=== PATIENT | male | born 1985 | race Caucasian/White ===

== ENCOUNTER 2017-07-30 17:48 | Inpatient (IN) | payer MEDICAID ==
[2017-07-30] MEDS: SOD CHLORIDE 0.9% 1,000 ML IV ×5 (19:09→21:56)
[2017-07-30 19:50] LABS: ADD MAN DIFF? NO
[2017-07-30 19:55] LABS: WHITE BLOOD COUNT 9.3 10^3/ul (4.8-10.8)
[2017-07-30 19:55] LABS: BASOPHIL # 0.1 10^3/ul (0.0-0.1); EOSINOPHILS % 0.1 % (0.0-7.0); HEMATOCRIT 46.3 % (42.0-52.0); LYMPHOCYTES # 1.7 10^3/ul (0.8-2.9); LYMPHOCYTES % 18.5 % (15.0-51.0); MEAN CORPUSCULAR HEMOGLOBIN 30.7 pg (29.0-33.0); MEAN CORPUSCULAR HGB CONC 34.6 g/dl (32.0-37.0); MEAN CORPUSCULAR VOLUME 88.7 fl (82.0-101.0); MEAN PLATELET VOLUME 9.4 fl (7.4-10.4); MONOCYTE # 1.1 10^3/ul (0.3-0.9); MONOCYTES % 11.4 % (0.0-11.0); NEUTROPHILS % 64.1 % (39.0-77.0); PLATELET COUNT 476 10^3/UL (140-415); RED BLOOD COUNT 5.22 10^6/ul (4.70-6.10)
[2017-07-30 20:13] LABS: LACTIC ACID 1.3 mmol/L (0.5-2.0)
[2017-07-30 20:14] LABS: ANION GAP 31 (8-16); BLOOD UREA NITROGEN 6 mg/dl (7-20); CALCIUM 9.9 mg/dl (8.4-10.2); CHLORIDE 108 mmol/L (97-110); POTASSIUM 4.2 mmol/L (3.5-5.1); SODIUM 142 mmol/L (135-144)
[2017-07-30] MEDS: ONDANSETRON 4 MG INJ IV (20:16)
[2017-07-30 20:18] LABS: CARBON DIOXIDE 7 mmol/L (21-31); GLUCOSE 481 mg/dl (70-220)
[2017-07-30 20:56] LABS: ADD UMIC YES; UR ASCORBIC ACID NEGATIVE (NEGATIVE); UR BILIRUBIN (Dip) NEGATIVE (NEGATIVE); UR BLOOD (Dip) 1+ mg/dL (NEGATIVE); UR CLARITY CLEAR (CLEAR); UR COLOR STRAW (YELLOW); UR GLUCOSE (Dip) 3+ mg/dL (NEGATIVE); UR KETONES (Dip) 2+ mg/dL (NEGATIVE); UR LEUKOCYTE ESTERASE (Dip) NEGATIVE Leu/ul (NEGATIVE); UR NITRITE (Dip) NEGATIVE (NEGATIVE); UR RBC 1 /HPF (0-5); UR SPECIFIC GRAVITY (Dip) 1.024 (1.003-1.030); UR TOTAL PROTEIN (Dip) 1+ mg/dl (NEGATIVE); UR UROBILINOGEN (Dip) NEGATIVE (NEGATIVE); UR WBC 0 /HPF (0-5)
[2017-07-30 21:01] LABS: MODE ROOM AIR; MetHgb Venous 0.2 %; Sample Type Blood venous; Site VENOUS LINE; Venous COHb 0.2 %; Venous Oxygen Sat 51.2 mmHG (55.0-75.0); Venous Total Hemglobin 14.9 g/dl
[2017-07-30] MEDS ORDERED: morphine 2 MG INJ IV (22:00)
[2017-07-30] MEDS ORDERED: INSULIN HUMAN REGULAR 100 UNIT in SOD CHLORIDE 0.9% 99 ML IV (22:00)
[2017-07-30] MEDS ORDERED: DEXTROSE 50% 50 ML SYRINGE IV ×2 (22:00)
[2017-07-30] MEDS ORDERED: ACETAMINOPHEN 650MG/20.3ML CUP PO (22:00)
[2017-07-30] MEDS ORDERED: ALBUTEROL/IPRATROPIUM (NEB) 3 ML AMP NEB (22:00)
[2017-07-30] MEDS ORDERED: ONDANSETRON 4 MG INJ IV (22:00)
[2017-07-30] MEDS: CEFTRIAXONE 1 GM/50 ML (PMX) 50 ML IVPB (22:20)
[2017-07-30] MEDS: ACCU-CHEK XX ×2 (22:44→23:00)
[2017-07-30] MEDS: INSULIN HUMAN REGULAR 100 UNIT in SOD CHLORIDE 0.9% 99 ML IV (22:44)
[2017-07-30 22:48] LABS: BLOOD UREA NITROGEN 5 mg/dl (7-20); CALCIUM 8.3 mg/dl (8.4-10.2); CHLORIDE 114 mmol/L (97-110); CREATININE 0.63 mg/dl (0.61-1.24); GLUCOSE 346 mg/dl (70-220); SODIUM 143 mmol/L (135-144)
[2017-07-30 22:48] LABS: PHOSPHORUS 1.7 mg/dl (2.5-4.9)
[2017-07-30 22:50] LABS: ANION GAP 28 (8-16); POTASSIUM 4.5 mmol/L (3.5-5.1)
[2017-07-30 22:56] LABS: CARBON DIOXIDE 6 mmol/L (21-31)
[2017-07-30] MEDS: LACTATED RINGER'S 1,000 ML IV (23:41)
[2017-07-30] MEDS ORDERED: NS + KCL 20 MEQ 1,000 ML IV (23:56)
[2017-07-31] MEDS: ACCU-CHEK XX ×17 (00:49→21:00)
[2017-07-31 01:14] LABS: ANION GAP 24 (8-16); BLOOD UREA NITROGEN 4 mg/dl (7-20); CALCIUM 8.4 mg/dl (8.4-10.2); CHLORIDE 117 mmol/L (97-110); CREATININE 0.58 mg/dl (0.61-1.24); GLUCOSE 274 mg/dl (70-220); POTASSIUM 3.6 mmol/L (3.5-5.1); SODIUM 143 mmol/L (135-144)
[2017-07-31 01:26] LABS: CARBON DIOXIDE 6 mmol/L (21-31)
[2017-07-31] MEDS: D5W-0.45 NACL + KCL 20 MEQ 1,000 ML IV ×2 (01:36→09:55)
[2017-07-31 02:23] LABS: ANION GAP 18 (8-16); BLOOD UREA NITROGEN 4 mg/dl (7-20); CALCIUM 8.3 mg/dl (8.4-10.2); CARBON DIOXIDE 12 mmol/L (21-31); CHLORIDE 121 mmol/L (97-110); GLUCOSE 210 mg/dl (70-220); POTASSIUM 4.1 mmol/L (3.5-5.1); SODIUM 147 mmol/L (135-144)
[2017-07-31 05:00] LABS: AADO2 Arterial 16.4 mmHg (7.0-24.0); Allen Test ACCEPTAB; Arterial Base Excess -10.6 mmol/L (-3.0-3); Arterial Blood Gas Oxygen Sat 97.5 mmHG (95.0-98.0); Arterial COHb 0.3 % (0.0-3.0); Arterial Fraction of Oxyhgb 96.9 % (93.0-99.0); Arterial HCO3 14.7 mmol/L (22.0-26.0); Arterial MetHb 0.3 % (0.0-1.5); Arterial Total Hemglobin 13.5 g/dl (12.0-18.0); Arterial pCO2 31.1 mmhg (35-45); MODE ROOM AIR; Site Right Radial
[2017-07-31 06:08] LABS: ADD MAN DIFF? NO
[2017-07-31 06:38] LABS: ALANINE AMINOTRANSFERASE 22 IU/L (13-69); ALBUMIN 3.3 g/dl (3.3-4.9); ALBUMIN/GLOBULIN RATIO 1.13; ALKALINE PHOSPHATASE 109 IU/L (42-121); ANION GAP 14 (8-16); ASPARTATE AMINO TRANSFERASE 9 IU/L (15-46); BLOOD UREA NITROGEN 4 mg/dl (7-20); CALCIUM 8.3 mg/dl (8.4-10.2); CARBON DIOXIDE 15 mmol/L (21-31); CHLORIDE 118 mmol/L (97-110); CREATININE 0.47 mg/dl (0.61-1.24); GLUCOSE 199 mg/dl (70-220); MAGNESIUM 1.9 mg/dl (1.7-2.5); PHOSPHORUS 0.7 mg/dl (2.5-4.9); SODIUM 144 mmol/L (135-144); TOTAL PROTEIN 6.2 g/dl (6.1-8.1)
[2017-07-31 06:50] LABS: WHITE BLOOD COUNT 8.5 10^3/ul (4.8-10.8)
[2017-07-31 06:50] LABS: BASOPHILS % 0.4 % (0.0-2.0); EOSINOPHILS % 0.1 % (0.0-7.0); HEMATOCRIT 34.3 % (42.0-52.0); HEMOGLOBIN 12.5 g/dl (14.0-18.0); LYMPHOCYTES # 1.4 10^3/ul (0.8-2.9); LYMPHOCYTES % 16.4 % (15.0-51.0); MEAN CORPUSCULAR HEMOGLOBIN 31.2 pg (29.0-33.0); MEAN CORPUSCULAR HGB CONC 36.4 g/dl (32.0-37.0); MEAN CORPUSCULAR VOLUME 85.5 fl (82.0-101.0); MEAN PLATELET VOLUME 9.3 fl (7.4-10.4); MONOCYTE # 1.2 10^3/ul (0.3-0.9); MONOCYTES % 13.6 % (0.0-11.0); NEUTROPHIL # 5.7 10^3/ul (1.6-7.5); PLATELET COUNT 377 10^3/UL (140-415); RED BLOOD COUNT 4.01 10^6/ul (4.70-6.10); RED CELL DISTRIBUTION WIDTH 13.4 % (11.5-14.5)
[2017-07-31 07:36] LABS: POTASSIUM 2.8 mmol/L (3.5-5.1)
[2017-07-31 08:11] LABS: CHOLESTEROL 133 mg/dl (100-200)
[2017-07-31 08:11] LABS: HDL CHOLESTEROL 33 mg/dl (28-63); LDL CHOLESTEROL,CALCULATED 85 mg/dl; TRIGLYCERIDES 76 mg/dl (0-149)
[2017-07-31 08:15] LABS: HEMOGLOBIN A1C 12.8 % (0-5.9)
[2017-07-31] MEDS: SOD CHLORIDE IVPB (08:30)
[2017-07-31] MEDS: POTASSIUM PHOSPHATE IVPB (08:30)
[2017-07-31 08:39] LABS: ANION GAP 13 (8-16); BLOOD UREA NITROGEN 4 mg/dl (7-20); CALCIUM 8.6 mg/dl (8.4-10.2); CARBON DIOXIDE 15 mmol/L (21-31); CHLORIDE 118 mmol/L (97-110); CREATININE 0.47 mg/dl (0.61-1.24); GLUCOSE 155 mg/dl (70-220); SODIUM 143 mmol/L (135-144)
[2017-07-31 08:42] LABS: POTASSIUM 2.8 mmol/L (3.5-5.1)
[2017-07-31] MEDS ORDERED: POTASSIUM PHOSPHATE 60 MEQ in SOD CHLORIDE 0.9% 500 ML IVPB (09:30)
[2017-07-31] MEDS: HEPARIN 5,000 UNIT/0.5 ML VIAL SC ×2 (09:30→21:16)
[2017-07-31] MEDS: POTASSIUM PHOSPHATE 30 MM in SOD CHLORIDE 0.9% 500 ML IVPB ×2 (09:55→14:01)
[2017-07-31] MEDS ORDERED: GLUCAGON 1 MG INJ IM (10:00)
[2017-07-31] MEDS ORDERED: GLUCOSE GEL 15 GRAM TUBE PO ×2 (10:00)
[2017-07-31] MEDS ORDERED: GLUCOSE GEL 15 GRAM TUBE BUCCAL (10:00)
[2017-07-31] MEDS: AMOXICILLIN/CLAV 875 MG TAB PO ×2 (10:09→21:11)
[2017-07-31] MEDS: INSULIN ASPART [NOVOLOG] 3 ML PEN SC ×5 (11:30→21:00)
[2017-07-31] MEDS: INSULIN GLARGINE [LANtus] 3 ML PEN SC (12:08)
[2017-07-31 19:46] LABS: MAGNESIUM 1.6 mg/dl (1.7-2.5)
[2017-07-31 19:46] LABS: ANION GAP 12 (8-16); BLOOD UREA NITROGEN 6 mg/dl (7-20); CALCIUM 8.8 mg/dl (8.4-10.2); CARBON DIOXIDE 19 mmol/L (21-31); CHLORIDE 111 mmol/L (97-110); GLUCOSE 176 mg/dl (70-220); PHOSPHORUS 2.1 mg/dl (2.5-4.9); POTASSIUM 3.1 mmol/L (3.5-5.1); SODIUM 139 mmol/L (135-144)
[2017-07-31] MEDS ORDERED: INSULIN GLARGINE [LANtus] 3 ML PEN SC (20:00)
[2017-08-01] MEDS: POTASSIUM CHLORIDE (SR) 20 MEQ TAB PO (01:45)
[2017-08-01] MEDS: ACCU-CHEK XX ×5 (02:00→21:00)
[2017-08-01] MEDS: POTASSIUM PHOSPHATE 30 MM in SOD CHLORIDE 0.9% 250 ML IVPB (02:39)
[2017-08-01 05:48] LABS: ADD MAN DIFF? NO
[2017-08-01 05:55] LABS: WHITE BLOOD COUNT 5.1 10^3/ul (4.8-10.8)
[2017-08-01 05:55] LABS: BASOPHILS % 0.4 % (0.0-2.0); EOSINOPHILS % 0.6 % (0.0-7.0); HEMATOCRIT 32.5 % (42.0-52.0); HEMOGLOBIN 11.9 g/dl (14.0-18.0); LYMPHOCYTES # 1.9 10^3/ul (0.8-2.9); LYMPHOCYTES % 37.1 % (15.0-51.0); MEAN CORPUSCULAR HGB CONC 36.6 g/dl (32.0-37.0); MEAN CORPUSCULAR VOLUME 84.6 fl (82.0-101.0); MONOCYTE # 0.7 10^3/ul (0.3-0.9); MONOCYTES % 14.5 % (0.0-11.0); NEUTROPHIL # 2.3 10^3/ul (1.6-7.5); NEUTROPHILS % 45.4 % (39.0-77.0); PLATELET COUNT 356 10^3/UL (140-415); RED BLOOD COUNT 3.84 10^6/ul (4.70-6.10); RED CELL DISTRIBUTION WIDTH 13.7 % (11.5-14.5)
[2017-08-01 06:12] LABS: PHOSPHORUS 4.4 mg/dl (2.5-4.9)
[2017-08-01 06:12] LABS: MAGNESIUM 1.8 mg/dl (1.7-2.5)
[2017-08-01 08:12] LABS: ANION GAP 13 (8-16); BLOOD UREA NITROGEN 5 mg/dl (7-20); CALCIUM 8.9 mg/dl (8.4-10.2); CARBON DIOXIDE 19 mmol/L (21-31); CHLORIDE 113 mmol/L (97-110); CREATININE 0.44 mg/dl (0.61-1.24); GLUCOSE 215 mg/dl (70-220); POTASSIUM 3.6 mmol/L (3.5-5.1); SODIUM 141 mmol/L (135-144)
[2017-08-01] MEDS: INSULIN ASPART [NOVOLOG] 3 ML PEN SC ×7 (08:14→21:00)
[2017-08-01] MEDS: AMOXICILLIN/CLAV 875 MG TAB PO ×2 (08:37→21:03)
[2017-08-01] MEDS: HEPARIN 5,000 UNIT/0.5 ML VIAL SC ×2 (08:39→21:03)
[2017-08-01] MEDS: INSULIN GLARGINE [LANtus] 3 ML PEN SC (12:32)
[2017-08-02] MEDS: ACCU-CHEK XX ×3 (02:00→11:30)
[2017-08-02 05:56] LABS: ADD MAN DIFF? NO
[2017-08-02 06:02] LABS: WHITE BLOOD COUNT 4.3 10^3/ul (4.8-10.8)
[2017-08-02 06:02] LABS: BASOPHILS % 0.5 % (0.0-2.0); EOSINOPHILS % 0.5 % (0.0-7.0); HEMATOCRIT 33.2 % (42.0-52.0); HEMOGLOBIN 12.3 g/dl (14.0-18.0); LYMPHOCYTES # 2.2 10^3/ul (0.8-2.9); LYMPHOCYTES % 50.3 % (15.0-51.0); MEAN CORPUSCULAR HEMOGLOBIN 31.1 pg (29.0-33.0); MEAN CORPUSCULAR VOLUME 84.1 fl (82.0-101.0); MEAN PLATELET VOLUME 9.3 fl (7.4-10.4); MONOCYTE # 0.5 10^3/ul (0.3-0.9); MONOCYTES % 11.6 % (0.0-11.0); NEUTROPHIL # 1.5 10^3/ul (1.6-7.5); NEUTROPHILS % 35.7 % (39.0-77.0); PLATELET COUNT 369 10^3/UL (140-415); RED BLOOD COUNT 3.95 10^6/ul (4.70-6.10); RED CELL DISTRIBUTION WIDTH 13.4 % (11.5-14.5)
[2017-08-02] MEDS: INSULIN ASPART [NOVOLOG] 3 ML PEN SC ×4 (08:17→11:46)
[2017-08-02] MEDS: HEPARIN 5,000 UNIT/0.5 ML VIAL SC (08:19)
[2017-08-02] MEDS: AMOXICILLIN/CLAV 875 MG TAB PO (08:19)
[2017-08-02] MEDS: INSULIN GLARGINE [LANtus] 3 ML PEN SC (11:44)
== END 2017-08-02 12:45 | disposition home or self-care (01) | DRG 637 ==
LOC: ICU 07-31 04:56 → PP2 08-01 13:21 → FTE 17:48 → ICU 22:02
PROVIDERS: Internal Medicine
DX: E11.10 Type 2 diabetes mellitus with ketoacidosis without coma (principal); G93.41 Metabolic encephalopathy; E87.2 Acidosis; H66.91 Otitis media, unspecified, right ear; H91.91 Unspecified hearing loss, right ear; Z79.4 Long term (current) use of insulin; Z79.84 Long term (current) use of oral hypoglycemic drugs
CPT/HCPCS: 36415; 36600; 80048; 80053; 80061; 81001; 82803; 82962; 83036; 83605; 83735; 84100; 85025; 87081; 96374; 96375; 99291-25